=== PATIENT | female | born 1960 | race Caucasian/White ===

== ENCOUNTER 2016-04-21 08:01 | Observation (INO) | payer OTHER ==
[~2016-04-21] VITALS: Ht 165.1 cm; Wt 65.8 kg
--- NOTE | 2016-04-21 08:07 | NUR ---
TRIAGE: 55 Y/O FEMALE PRESENTS C/O "FEELING SHAKY WITH COLD SWEATS. I WOKE UP WITH A HEADACHE AND TOOK EXCEDRIN." NO SHAKINESS NOTED IN TRIAGE. "I HAVE MUSCLE SPASMS." AFEBRILE IN TRIAGE.
--- NOTE | 2016-04-21 08:10 | NUR ---
PT TO ROOM 10 VIA W/C. AWAITING EVAL.
--- NOTE | 2016-04-21 08:19 | NUR ---
DR DAVIS AT BEDSIDE FOR EVAL.
--- NOTE | 2016-04-21 08:26 | ED GENERAL ADULT ---
History of Present Illness General Chief Complaint: General Adult Stated Complaint: SHAKEY, COLD SWEATS Source: patient, family Exam Limitations: no limitations Vital Signs & Intake/Output Vital Signs & Intake/Output Vital Signs Date Time Temp Pulse Resp B/P Pulse O2 O2 Flow FiO2 Ox Delivery Rate 04/21 1147 77 16 111/59 100 Room Air 04/21 1028 96.1 04/21 1027 79 18 131/61 100 Room Air 04/21 0806 98.0 90 18 113/75 100 Room Air Room Air Allergies Coded Allergies: No Known Allergies (04/21/16) Reconcile Medications Citalopram Hydrobromide (Citalopram HBr) 40 MG TABLET 1 TAB PO DAILY MENTAL HEALTH (Reported) Simvastatin (Simvastatin*) 10 MG TABLET 1 TAB PO QPM CHOLESTEROL (Reported) Triage Note: TRIAGE: 55 Y/O FEMALE PRESENTS C/O "FEELING SHAKY WITH COLD SWEATS. I WOKE UP WITH A HEADACHE AND TOOK EXCEDRIN." NO SHAKINESS NOTED IN TRIAGE. "I HAVE MUSCLE SPASMS." AFEBRILE IN TRIAGE. Triage Nurses Notes Reviewed? yes HPI: Patient woke up with a frontal throbbing headache. Patient states that she suffers from tension headaches so she took Excedrin and that helped alleviate the headache. Patient states that since then she has had shaking chills and these episodes where he feels like she is just being washed over with cold fluid and she suddenly feels like she is given a pass out. The symptoms last a few minutes and then go away. There are no aggravating or mitigating factors. Patient denies any pain currently. Patient states the headache is all resolved. There is no blurry vision. There is no nausea or vomiting. She just feels cold and shaky and these episodes of feeling she is given a pass out. Past History Travel History Traveled to [place] past 21 day No Medical History Any Pertinent Medical History? see below for history Neurological: NONE EENT: NONE Cardiovascular: hyperlipidemia, HYPOTENSION Respiratory: NONE Gastrointestinal: NONE Hepatic: NONE Renal: NONE Musculoskeletal: NONE Psychiatric: anxiety Endocrine: NONE Blood Disorders: NONE Cancer(s): NONE BUSINESS UNIT DIRECTOR/Reproductive: NONE Surgical History Surgical History: non-contributory Psychosocial History What is your primary language Eritrean Tobacco Use: Never used ETOH Use: occasional use Illicit Drug Use: denies illicit drug use Family History Hx Contributory? No Review of Systems Review of Systems Constitutional: Reports: see HPI, chills. EENTM: Reports: no symptoms. Respiratory: Reports: no symptoms. Cardiovascular: Reports: no symptoms. GI: Reports: no symptoms. Genitourinary: Reports: no symptoms. Musculoskeletal: Reports: no symptoms. Skin: Reports: no symptoms. Neurological/Psychological: Reports: see HPI, headache. Hematologic/Endocrine: Reports: no symptoms. Immunologic/Allergic: Reports: no symptoms. All Other Systems: Reviewed and Negative Physical Exam Physical Exam General Appearance: well developed/nourished, alert, awake, anxious, moderate distress Head: atraumatic, normal appearance Eyes: Bilateral: PERRL, EOMI. Ears, Nose, Throat: normal pharynx, normal ENT inspection, hearing grossly normal Neck: normal inspection, supple, full range of motion, NO jvd Respiratory: normal breath sounds, chest non-tender, no respiratory distress, lungs clear Cardiovascular: regular rate/rhythm, normal peripheral pulses Gastrointestinal: normal bowel sounds, soft, non-tender Back: normal inspection, normal range of motion Extremities: normal inspection, normal capillary refill, normal range of motion, no edema Neurologic/Psych: no motor/sensory deficits, awake, alert, oriented x 3, normal gait, normal mood/affect Skin: intact, normal color, warm/dry Lymphatic: no anterior cervical livia Core Measures ACS in differential dx? Yes ASA ordered for poss ACS? 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 04/21 0843 Active RAPID VIRAL INFLUENZA A 04/21 0824 Complete URINALYSIS 04/21 0824 Complete TROPONIN LEVEL 04/21 0824 Complete COMPREHENSIVE METABOLIC PANEL 04/21 0824 Complete CBC WITHOUT DIFFERENTIAL 04/21 0824 Complete EKG 04/21 0824 Active Intake & Output 04/21 0804 Active Current Medications Sig/Patrick Start time Last Medication Dose Stop Time Status Admin Ketorolac 30 MG ONCE ONE 04/21 1345 UNVr Tromethamine 04/21 1346 (Toradol) Laboratory Tests 04/21/16 1250: Troponin I < 0.01 04/21/16 0840: Anion Gap 13, Estimated GFR > 60, BUN/Creatinine Ratio 30.0 H, Glucose 105 H, Calcium 9.9, Total Bilirubin 0.9, AST 37 H, ALT 41, Alkaline Phosphatase 73, Troponin I < 0.01, Total Protein 7.5, Albumin 4.5, Globulin 3.0, Albumin/ Globulin Ratio 1.5, CBC w Diff NO MAN DIFF REQ, RBC 4.45, MCV 91.2, MCH 30.8, RDW 12.4, MPV 9.2, Gran % 65.9, Lymphocytes % 20.6, Monocytes % 11.9 H, Eosinophils % 1.2, Basophils % 0.4, Absolute Granulocytes 2.8, Absolute Lymphocytes 0.9 L, Absolute Monocytes 0.5, Absolute Eosinophils 0.1, Absolute Basophils 0, PUBS MCHC 33.7 04/21/16 0824: Urine Color YEL, Urine Clarity CLEAR, Urine pH 7.5, Ur Specific Frostproof 1.015, Urine Protein NEG, Urine Ketones 40 H, Urine Nitrite NEG, Urine Bilirubin NEG, Urine Urobilinogen 0.2, Ur Leukocyte Esterase NEG, Ur Microscopic EXAM NOT REQUIRED, Urine Hemoglobin NEG, Urine Glucose NEG Initial ED EKG: NSR, no ST T wave changes Repeat EKG: unchanged Rhythm Strip: normal sinus rhythm Departure Departure Disposition: HOME OR SELF CARE Condition: Stable Clinical Impression Primary Impression: Viral syndrome Secondary Impressions: Headache Referrals: PATIENT HAS NO PRIMARY CARE DR (PCP/Family) Additional Instructions: Drink plenty of fluids. Return if symptoms worsen or as needed. Departure Forms: Customer Survey General Discharge Information Critical Care Note Critical Care Note Critical Care Time: non-applicable ED Attending Observation Initial Observation Note: I have seen and personally examined REGAN JARRELL on 04/21/16 at 1003. I agree with the current emergency department documentation. The disposition (admission or discharge) is uncertain at this time, she needs a period of observation for the following reason(s): [Patient is still feeling symptomatic despite 2 L of fluid. Patient's lab work is normal. Patient states that episodically she gets this way for some over her the feels like she is given a pass out. Patient will be placed in ED observation for gentle hydration and repeat laboratory data. If patient remains symptomatic she may require admission and cardiology evaluation.] The ED Nurse caring for this patient has been personally informed as to what the patient is being observed for. Observation Re-Evaluation: I have reevaluated REGAN JARRELL on 04/21/16 at 1230. The physical findings that support the continued need to observe this patient include [patient resting comfortably and able to ambulated to the bathroom without difficulty. Patient states that she is still getting these episodic feeling like she is, pass out. Neck is supple. Her lungs are clear to auscultation. Cardiac exam is regular rate and rhythm.]. 04/21/16 1340: Patient is feeling better. Patient has not had any more episodes of the feeling like she is going to pass out. Patient states her headache is starting to come back. She describes it as a frontal throbbing headache and she rates it as 2 out of 10. There is no radiation. It is no blurry vision. Patient feels comfortable going home. We will give her IV Toradol. Observation Discharge: I have reevaluated REGAN JARRELL on 04/21/16 at 1342. The patient is: ([X]): Stable for discharge (): To be admitted to Nursing Floor (): To be placed in Observation on Nursing Floor (): For transfer to other facility The patient was being observed for As a result of that observation, I have determined .
--- NOTE | 2016-04-21 08:52 | NUR ---
EKG DONE, BLOODWORK, SST,LAV,BLUE,EMERSON AND PINK TOP TUBES SENT TO LAB. FLU SWAB OBTAINED/SENT TO LAB. PT AWARE OF NEED FOR URINE SPECIMEN WHEN ABLE.
[2016-04-21] MEDS ORDERED: CITALOPRAM HBR40 MG PO (09:06)
[2016-04-21] MEDS ORDERED: SIMVASTATIN10 M1 PO (09:06)
[2016-04-21 09:09] LABS: ABSOLUTE BASOPHIL COUNT 0 /CUMM (0.0-0.2); ABSOLUTE EOSINOPHIL COUNT 0.1 /CUMM (0.0-0.7); ABSOLUTE GRANULOCYTE CT 2.8 /CUMM (1.4-6.5); ABSOLUTE LYMPH COUNT 0.9 /CUMM (1.2-3.4); ABSOLUTE MONOCYTE COUNT 0.5 /CUMM (0.10-0.60); BASOPHIL % 0.4 % (0.0-2.0); EOSINOPHIL % 1.2 % (0-5); GRANULOCYTE % 65.9 % (42.2-75.2); HEMATOCRIT 40.6 % (37-47); MEAN CORPUSCULAR HGB 30.8 PG (27.0-31.0); MEAN CORPUSCULAR HGB CONC 33.7 G/DL (33.0-37.0); MEAN CORPUSCULAR VOLUME 91.2 FL (81.0-99.0); MEAN PLATELET VOLUME 9.2 FL (7.4-10.4); PLATELET COUNT 182 /CUMM (130-400); RBC DISTRIBUTION WIDTH 12.4 % (11.5-14.5); RED BLOOD CELL CT 4.45 /CUMM (4.20-5.40); WHITE BLOOD CELL COUNT 4.2 /CUMM (4.8-10.8)
--- NOTE | 2016-04-21 10:04 | NUR ---
PT WILL BE ED OBSERVATION. WILL HAVE REPEAT TROP. Informed waiting has been performed.
--- NOTE | 2016-04-21 11:15 | NUR ---
ASSUMING CARE OF PT AT THIS TIME
--- NOTE | 2016-04-21 11:47 | NUR ---
PT RESTING COMFORTABLY. VSS. UPDATED ON POC. 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
--- NOTE | 2016-04-21 12:55 | NUR ---
REPEAT TROPONIN SENT TO LAB
[2016-04-21 13:43] VITALS: BP 121/58
== END 2016-04-21 15:06 ==
LOC: ERH 08:01 → ERHI 10:02
PROVIDERS: ADMIT Emergency Medicine
DX: B34.9 Viral infection, unspecified (principal); R51 Headache; E78.5 Hyperlipidemia, unspecified; I95.9 Hypotension, unspecified
CPT/HCPCS: 81003; 87804; 87804-59; 93005; 93010; 96360; 96361; 96366; 96374; G0378; J1885